=== PATIENT | female | born 2000 | race Caucasian/White ===

== ENCOUNTER 2019-02-11 17:01 | Emergency (ER) | payer MEDICAID, OTHER ==
[2019-02-11 17:01] VITALS: BMI 18.1
[2019-02-11] MEDS ORDERED: Sodium Chloride 0.9% 1,000 ML IV ONE (17:40)
--- NOTE | 2019-02-11 18:00 | C.PDOC ---
History Of Present Illness Patient presents to ED c/o pelvic pain and vaginal bleeding. Patient is s/p TOP at [facility] on 02/07/19. She states she initially has mild pain and light bleeding, but today the pain worsened and bleeding got much heavier. She denies fever, SOB, dysuria, vomiting, diarrhea. She has no significantl PMHx, is . Time Seen by Provider: 02/11/19 17:29 Chief Complaint (Nursing): Female Genitourinary History Per: Patient History/Exam Limitations: no limitations Onset/Duration Of Symptoms: Days Current Symptoms Are (Timing): Still Present Severity: Moderate Quality Of Discomfort: "Pain" Abnormal Vaginal Bleeding: Yes Past Medical History Reviewed: Historical Data, Nursing Documentation, Vital Signs Vital Signs: Last Vital Signs Temp 98.8 F 02/11/19 17:21 Pulse 101 H 02/11/19 17:21 Resp 18 02/11/19 17:21 BP 111/72 02/11/19 17:21 Pulse Ox 100 02/11/19 17:21 Primary Care Provider: Lucy Mistry Medical History PMH: No Chronic Diseases Other Surgeries: TOP x 3 Family History: States: No Known Family Hx - Social History Hx Alcohol Use: No Hx Substance Use: No - Immunization History Hx Tetanus Toxoid Vaccination: No Hx Influenza Vaccination: Yes Hx Pneumococcal Vaccination: No Review Of Systems Constitutional: Negative for: Fever, Chills Cardiovascular: Negative for: Chest Pain, Palpitations Respiratory: Negative for: Shortness of Breath Gastrointestinal: Negative for: Nausea, Vomiting, Diarrhea Genitourinary: Positive for: Vaginal Bleeding. Negative for: Dysuria Physical Exam - Physical Exam Appears: Well, Non-toxic, No Acute Distress Skin: Normal Color, Warm, Dry, No Pale Oral Mucosa: Moist Cardiovascular: Rhythm Regular Respiratory: Normal Breath Sounds, No Rales, No Rhonchi, No Wheezing Gastrointestinal/Abdominal: Bowel Sounds, Soft, Tenderness ((+) suprapubic TTP, (-) McBurney's), No Guarding, No Rebound Back: Normal Inspection, No CVA Tenderness ED Course And Treatment O2 Sat by Pulse Oximetry: 100 (RA) Pulse Ox Interpretation: Normal Progress Note: Blood work, UA, transvaginal US ordered and reviewed. Patient given IV NS bolus, IV morphine 2mg. Disposition - Disposition Disposition Time: 19:00 Condition: STABLE Forms: [employer] (Bots[place]an) - Clinical Impression Clinical Impression: Pelvic pain, Vaginal bleeding Physician Patient Turnover Patient Signed Over To: Justin Jaimes Handoff Comments: pending labs, ua, ultrasound, reassessment
[2019-02-11] MEDS ORDERED: Sodium Chloride 0.9% 1,000 ML ONE (18:21)
[2019-02-11 18:43] LABS: BASO # 0.1 K/uL (0.0-0.2); BASO % 0.6 % (0.0-2.0); EOS # 0.3 K/uL (0.0-0.7); EOS % 3.2 % (0.0-4.0); LYMPH % 21.7 % (20.0-40.0); MEAN CELL VOLUME 84.8 fL (81.0-99.0); MEAN CORPUSCULAR HEMOGLOBIN 29.7 pg (27.0-31.0); MEAN CORPUSCULAR HGB CONC 35.1 g/dL (33.0-37.0); MEAN PLATELET VOLUME 7.4 fL (7.2-11.7); MONO # 0.5 K/uL (0.0-0.8); MONO % 5.7 % (0.0-10.0); NEUT # 6.3 K/uL (1.8-7.0); NEUT % 68.8 % (50.0-75.0); NRBC % 0.1 % (0.0-2.0); RBC 4.37 Mil/uL (3.80-5.20); RED CELL DISTRIBUTION WIDTH 12.7 % (11.5-14.5); WHITE BLOOD COUNT 9.1 K/uL (4.8-10.8)
[2019-02-11 18:50] LABS: ALB/GLOB RATIO 1.3 (1.0-2.1); ALBUMIN 4.6 g/dL (3.5-5.0); ALT/SGPT 15 U/L (9-52); AST/SGOT 25 U/L (14-36); BLOOD UREA NITROGEN 9 mg/dL (7-17); CALCIUM 9.7 mg/dl (8.6-10.4); GFR NON-AFRICAN AMERICAN > 60
[2019-02-11 18:57] LABS: SQUAMOUS EPITHIAL 3 /hpf (0-5); URINE BACTERIA FEW (<OCC); URINE BILIRUBIN NEGATIVE (NEGATIVE); URINE BLOOD 3+ (NEGATIVE); URINE CLARITY Hazy (Clear); URINE COLOR Yellow (YELLOW); URINE GLUCOSE (UA) NORMAL (Normal); URINE LEUKOCYTE ESTERASE 1+ Leu/uL (Negative); URINE PROTEIN 1+ mg/dL (NEGATIVE); URINE UROBILINOGEN NORMAL mg/dL (0.2-1.0)
[2019-02-11 21:26] VITALS: BP 126/72; PULSE 74; RESP 20; TEMP 98; O2SAT 98
--- NOTE | 2019-02-12 12:12 | US ---
Date of service: 02/11/2019 HISTORY: pelvic pain, bleeding, s/p TOP 02/07/19 Beta HCG results: 2595.80 units. LMP 11/24/2018. COMPARISON: None available. TECHNIQUE: Transabdominal, transvaginal. Real -time technique with 2D, duplex and color Doppler. FINDINGS: UTERUS: Measures 5.1 x 6.6 x 11.0 cm. Heterogeneous echo characteristics. No fibroid or other mass lesion seen. ENDOMETRIUM: Measures 15.8 mm in diameter. Thickened heterogeneous endometrium displaying increased vascularity. CERVIX: No cervical abnormality identified. RIGHT OVARY: Measures 1.8 x 3.1 x 2.8 cm. No solid mass. Normal flow. Multiple subcentimeter follicles. LEFT OVARY: Measures 1.7 x 2.5 x 2.7 cm. No solid mass. Normal flow. FREE FLUID: No significant free fluid noted. OTHER FINDINGS: None. IMPRESSION: Thickened heterogeneous hypervascular endometrium. No visible gestational sac, pole or yolk sac. Findings suggestive of retained products of conception.
== END 2019-02-11 21:24 | disposition home or self-care (01) ==
LOC: C.ER 17:01
DX: O03.1 Delayed or excessive hemorrhage following incomplete spontaneous abortion (principal); R10.2 Pelvic and perineal pain
CPT/HCPCS: 76830; 76856; 80053; 81001; 84702; 85025; 96374; 99284; J2270; J7030